=== PATIENT | female | born 1960 | race Two or more races ===

== ENCOUNTER 2017-06-17 16:08 | Emergency (ER) | payer MEDICAID ==
--- NOTE | 2017-06-17 16:42 | ER Document Report ---
ED Medical Screen (RME) - General Chief Complaint: Chest Pain Stated Complaint: CHEST PAIN Time Seen by Provider: 06/17/17 16:21 Mode of Arrival: Ambulatory Information source: Patient TRAVEL OUTSIDE OF THE [place] IN LAST 30 DAYS: No - HPI Patient complains to provider of: Chest Pain Onset: This afternoon Exacerbated by: Movement, Coughing, Deep breathing Notes: 06/17/17 16:41 Patient is a 57-year-old female who smokes, who presents to the emergency room complaining of left-sided chest pain that started approximately 1 hour prior to arrival while she was smoking, she reports a history of similar symptoms in the past is usually fleeting and does not require her to come to the hospital for evaluation, pain is worsened with deep breath or certain movements, she does feel short of breath at times as well, denies any history of coronary artery disease for herself but her father who she has never met from a heart attack - Related Data Allergies/Adverse Reactions: No Known Allergies Allergy (Verified 06/17/17 16:19) Past Medical History Pulmonary Medical History: Reports: Hx Asthma Endocrine Medical History: Denies: Hx Diabetes Mellitus Type 2 Renal/ Medical History: Reports: Hx Kidney Stones. Denies: Hx Peritoneal Dialysis Past Surgical History: Reports: Hx Tubal Ligation - Immunizations Immunizations up to date: No Hx Diphtheria, Pertussis, Tetanus Vaccination: Yes Physical Exam - Vital signs Vitals: Temp Pulse Resp BP Pulse Ox 98.0 F 63 20 101/71 95 06/17/17 16:32 06/17/17 16:32 06/17/17 16:32 06/17/17 16:32 06/17/17 16:32 Course - Vital Signs Vital signs: Temp Pulse Resp BP Pulse Ox 98.0 F 63 20 101/71 95 06/17/17 16:32 06/17/17 16:32 06/17/17 16:32 06/17/17 16:32 06/17/17 16:32
--- NOTE | 2017-06-17 17:39 | ER Document Report ---
ED Cardiac - General Mode of Arrival: Ambulatory Information source: Patient TRAVEL OUTSIDE OF THE [place] IN LAST 30 DAYS: No - HPI Patient complains to provider of: Chest pain, Shortness of breath Use of: Other - cigarettes Was the onset of pain: Sudden When did pain begin: 15:30 Chest pain location: Substernal Quality of pain: Sharp Similar symptoms previously: Yes Recently seen / treated by doctor: No <JANESSA FRANCISCO - Last Filed: 06/17/17 18:09> <ABBIE BRUNSON - Last Filed: 06/17/17 21:53> - General Chief Complaint: Chest Pain Stated Complaint: CHEST PAIN Time Seen by Provider: 06/17/17 16:21 Notes: Patient is a 57 female presenting to the emergency department for chest pain that radiates into her neck. Patient states her pain was onset around 15:30 this evening while smoking a cigarette. Patient states she has had similar pain before but states that it was not as intense and did not last long. Patient states her last episode was at the end of last year; patient states it came on suddenly and lasted for only about 3 minutes. Patient states this is the 3rd episode of pain and it has been continuous and is exacerbated with deep breaths , coughing, and certain movements. Patient states she also has some shortness of breath. Patient was brought in via EMS and received his 324 mg of aspirin and 0.4 sublingual nitroglycerin; patient states she had no relief with these medications. Patient states she takes Seroquel for sleeping and she also takes Suboxone. Patient has a history of IV drug use which is why he is on Suboxone now. Patient also has a history of tubal ligation and kidney stones. Patient states her father that she never met past away from an myocardial infarction. Patient has no known allergies. [place] [facility] [place]JANESSA FRANCISCO) - Related Data Allergies/Adverse Reactions: No Known Allergies Allergy (Verified 06/17/17 16:19) Past Medical History - General Information source: Patient - Social History Smoking Status: Current Every Day Smoker Chew tobacco use (# tins/day): No Frequency of alcohol use: None Drug Abuse: None Family History: None Patient has suicidal ideation: No Patient has homicidal ideation: No Pulmonary Medical History: Reports: Hx Asthma Renal/ Medical History: Reports: Hx Kidney Stones Past Surgical History: Reports: Hx Tubal Ligation - Immunizations Immunizations up to date: No Hx Diphtheria, Pertussis, Tetanus Vaccination: Yes <MARYAMJANESSA - Last Filed: 06/17/17 18:09> Review of Systems - Review of Systems Constitutional: No symptoms reported EENT: No symptoms reported Cardiovascular: See HPI, Chest pain Respiratory: See HPI, Short of breath Gastrointestinal: No symptoms reported Genitourinary: No symptoms reported Female Genitourinary: No symptoms reported Musculoskeletal: No symptoms reported Skin: No symptoms reported Hematologic/Lymphatic: No symptoms reported Neurological/Psychological: No symptoms reported -: Yes All other systems reviewed and negative <JANESSA FRANCISCO - Last Filed: 06/17/17 18:09> Physical Exam - Vital signs Interpretation: Normal <JANESSA FRANCISCO - Last Filed: 06/17/17 18:09> <ABBIE BRUNSON - Last Filed: 06/17/17 21:53> - Vital signs Vitals: Temp Pulse Resp BP Pulse Ox 98.0 F 63 20 101/71 95 06/17/17 16:32 06/17/17 16:32 06/17/17 16:32 06/17/17 16:32 06/17/17 16:32 - Notes Notes: GENERAL: Alert, interacts well. Mild distress. HEAD: Normocephalic, atraumatic. EYES: Appear normal. Pupils equal, round, and reactive to light. ENT: Moist mucus membranes, tongue midline. NECK: Full range of motion. Supple. Trachea midline. LUNGS: Clear to auscultation bilaterally, no wheezes, rales, or rhonchi. No respiratory distress. Left anterior chest wall is exquisitely tender to palpation. HEART: Regular rate and rhythm. No murmurs, gallops, or rubs. ABDOMEN: Soft, non-tender. Non-distended. Normal bowel sounds. EXTREMITIES: Moves all 4 extremities spontaneously. Normal strength. No edema. NEUROLOGICAL: Alert and oriented x3. Normal speech. No focal neurological deficits. GSC 15. PSYCH: Normal affect, normal mood. SKIN: Warm, dry, normal turgor. No rashes or lesions noted. (JANESSA FRANCISCO) Course - Laboratory Result Diagrams: 06/17/17 17:11 06/17/17 17:11 <JANESSA FRANCISCO - Last Filed: 06/17/17 18:09> - Laboratory Result Diagrams: 06/17/17 17:11 06/17/17 20:41 - Diagnostic Test Radiology reviewed: Image reviewed - Chest x-ray is normal - EKG Interpretation by Me EKG shows normal: Sinus rhythm, [place], Intervals, QRS Complexes. abnormal: ST-T Waves - Borderline anterior T abnormalities, T-wave inversion in V1, V2, V3 Rate: Normal Rhythm: NSR When compared to previous EKG there are: Previous EKG unavailable <ABBIE BRUNSON - Last Filed: 06/17/17 21:53> - Re-evaluation Re-evalutation: 06/17/17 21:51 The patient's troponin on a chemistry that had to be redrawn multiple times was negative. Troponin was drawn approximately 5 hours after the continuous pain had started. Went in to see the patient to review the lab work and the diagnosis with her, the room was empty there were several empty bags that have been containing food and candy. I later learned that she had been out smoking and had returned and was given the discharge paperwork, but I did not get a chance to speak with her. (ABBIE BRUNSON) - Vital Signs Vital signs: Temp Pulse Resp BP Pulse Ox 98.9 F 63 18 123/75 97 06/17/17 21:40 06/17/17 21:40 06/17/17 21:40 06/17/17 21:40 06/17/17 21:40 Discharge <JANESSA FRANCISCO - Last Filed: 06/17/17 18:09> <ABBIE BRUNSON - Last Filed: 06/17/17 21:53> - Discharge Clinical Impression: Chest wall pain Condition: Stable Disposition: HOME, SELF-CARE Additional Instructions: Chest Wall Pain: Your chest pain has been diagnosed as coming from the chest wall. This is often caused by straining the muscles or joints in the chest during physical activity, direct trauma, coughing, or vigorous vomiting. Persons with arthritis are especially prone to this type of pain, due to inflammation of the cartilage joints near the breast bone. Occasionally, no cause can be found. Rest from strenuous physical activity. This kind of chest pain is usually made worse by movement of the chest. Depending on the symptoms, we may recommend Motrin or Aleve for pain and antiinflammatory effects. If the pain is new, and seems to be due to muscle strain, cold packs can help. Otherwise, apply gentle warmth to the painful area for 15 minutes every hour or two. You should contact the doctor immediately if things change. Further evaluation is needed if you develop a fever or cough, if the nature of the pain changes, or if you become short of breath. Follow-up with your primary care provider if not improving. RETURN TO THE EMERGENCY ROOM IF ANY NEW OR WORSENING SYMPTOMS. Referrals: KATIE BUITRAGO MD [Primary Care Provider] - Follow up as needed Scribe Attestation: 06/17/17 18:31 I personally performed the services described in the documentation, reviewed and edited the documentation which was dictated to the scribe in my presence, and it accurately records my words and actions. (ABBIE BRUNSON) Scribe Documentation - Scribe Written by Scribe:: Sarah Mott, 06/17/2017 18:05 acting as scribe for :: Mimi <JANESSA FRANCISCO - Last Filed: 06/17/17 18:09>
[2017-06-17 18:11] LABS: ABSOLUTE EOSINOPHILS # (AUTO) 0.2 10^3/uL (0.0-0.6); ABSOLUTE LYMPHOCYTES (AUTO) 1.5 10^3/uL (0.5-4.7); ABSOLUTE MONOCYTES (AUTO) 0.4 10^3/uL (0.1-1.4); ABSOLUTE NEUT (AUTO) 2.7 10^3/uL (1.7-8.2); BASOPHILS % (AUTO) 0.5 % (0-2); EOSINOPHILS % (AUTO) 3.4 % (0-6); HEMATOCRIT 38.4 % (36.0-47.0); HEMOGLOBIN 13.3 g/dL (12.0-15.5); HGB HCT DIFFERENCE 1.5; LYMPHOCYTES % (AUTO) 31.4 % (13-45); MEAN CORPUSCULAR HEMOGLOBIN 31.5 pg (27.0-33.4); MEAN CORPUSCULAR HGB CONC 34.6 g/dL (32.0-36.0); MEAN CORPUSCULAR VOLUME 91 fl (80-97); MONOCYTES % (AUTO) 7.8 % (3-13); RED BLOOD COUNT 4.21 10^6/uL (3.72-5.28); RED CELL DISTRIBUTION WIDTH 13.2 % (11.5-14.0); SEGMENTED NEUTROPHILS % (AUTO) 56.9 % (42-78); WHITE BLOOD COUNT 4.7 10^3/uL (4.0-10.5)
--- NOTE | 2017-06-17 18:43 | RADIOLOGY REPORT (SQ) ---
EXAM DESCRIPTION: CHEST PA/LAT COMPLETED DATE/TIME: 06/17/2017 6:36 pm REASON FOR STUDY: cp COMPARISON: None. EXAM PARAMETERS: NUMBER OF VIEWS: two views TECHNIQUE: Digital Frontal and Lateral radiographic views of the chest acquired. RADIATION DOSE: NA LIMITATIONS: none FINDINGS: LUNGS AND PLEURA: No opacities, masses or pneumothorax. No pleural effusion. MEDIASTINUM AND HILAR STRUCTURES: No masses or contour abnormalities. HEART AND VASCULAR STRUCTURES: Heart normal size. No evidence for failure. BONES: No acute findings. HARDWARE: None in the chest. OTHER: No other significant finding. IMPRESSION: NO SIGNIFICANT RADIOGRAPHIC FINDING IN THE CHEST. TECHNICAL DOCUMENTATION: JOB ID: [id number] [employer]- All Rights Reserved
[2017-06-17 21:01] LABS: ALANINE AMINOTRANSFERASE 18 U/L (9-52); ALBUMIN 3.9 g/dL (3.5-5.0); ALKALINE PHOSPHATASE 63 U/L (38-126); ANION GAP 7 (5-19); ASPARTATE AMINO TRANSFERASE 18 U/L (14-36); BILIRUBIN,DIRECT 0.4 mg/dL (0.0-0.4); BILIRUBIN,TOTAL 0.4 mg/dL (0.2-1.3); BLOOD UREA NITROGEN 18 mg/dL (7-20); CARBON DIOXIDE 29 mmol/L (22-30); CHLORIDE 106 mmol/L (98-107); CREATINE KINASE 50 U/L (30-135); CREATININE RESULT 0.78 mg/dL (0.52-1.25); GLUCOSE 95 mg/dL (75-110); POTASSIUM 4.7 mmol/L (3.6-5.0); SODIUM 142.1 mmol/L (137-145); TOTAL PROTEIN 6.9 g/dL (6.3-8.2)
[2017-06-17 21:17] LABS: CREATINE KINASE MB < 0.22 ng/mL (<4.55); TROPONIN I < 0.012 ng/mL
[2017-06-17 21:43] VITALS: BP 123/75
--- NOTE | 2017-06-18 03:38 | EKG REPORT ---
SEVERITY:- BORDERLINE ECG - SINUS RHYTHM BORDERLINE T ABNORMALITIES, ANTERIOR LEADS : Confirmed by: Maribell Sanabria MD 18-Jun-2017 03:37:36
== END 2017-06-17 21:43 | disposition home or self-care (01) ==
LOC: ER 16:08
DX: R07.89 Other chest pain (principal); J45.909 Unspecified asthma, uncomplicated; R06.02 Shortness of breath; F17.210 Nicotine dependence, cigarettes, uncomplicated; Z79.899 Other long term (current) drug therapy; Z79.891 Long term (current) use of opiate analgesic; Z82.49 Family history of ischemic heart disease and other diseases of the circulatory system
CPT/HCPCS: 36415; 71020; 80053; 82550; 82553; 84484; 85025; 93005; 93010; 99285

== ENCOUNTER → 2017-12-17 | Outpatient (CLI) | payer MEDICAID ==
[2017-12-17 14:03] LABS: BACTERIA (WET MOUNT) 4+ BACTERIA SEEN; EPITHELIALS (WET MOUNT) 3+ EPITHELIALS SEEN; T.VAGINALIS (WET MOUNT) NO TRICHOMONAS SEEN; WBCS (WET MOUNT) 4+ WBCS SEEN; YEAST (WET MOUNT) NO YEAST SEEN
== END ==
LOC: LAB 13:59
PROVIDERS: ATTEND Nurse Practitioner Acute Care
DX: N89.8 Other specified noninflammatory disorders of vagina (principal)
CPT/HCPCS: 87210

== ENCOUNTER 2019-11-11 10:26 | Emergency (ER) | payer MEDICAID ==
[2019-11-11] MEDS ORDERED: NORMAL SALINE 1000 ML 1,000 ML IV ONE (10:52)
[2019-11-11] MEDS ORDERED: KETOROLAC TROMETHAMINE INJ/PF 30 MG/1 ML SDV IV ONE (10:52)
[2019-11-11 10:53] VITALS: BP 136/88
--- NOTE | 2019-11-11 10:53 | ER Document Report ---
ED Medical Screen (RME) - General Chief Complaint: Flank Pain Stated Complaint: FLANK PAIN Time Seen by Provider: 11/11/19 10:43 Primary Care Provider: SCAR LEPE NP [Primary Care Provider] - Follow up as needed TRAVEL OUTSIDE OF THE [place] IN LAST 30 DAYS: No - HPI Notes: 11/11/19 10:52 59-year-old female to the emergency department with complaints of left-sided flank pain that began suddenly last night while she is standing at the sink. She states that she has a history of kidney stones and is afraid that she may have another 1. She denies any nausea or vomiting. She states that she still continues to have pain. She denies any blood in her urine. She denies any dysuria or burning. She denies any frequency. States she never drinks water because she does not like the taste of it. I performed a brief medical screening exam on the patient and placed initial orders to help expedite in her care. We will have her further evaluated and managed by main side provider. - Related Data Allergies/Adverse Reactions: No Known Allergies Allergy (Verified 11/11/19 10:48) Past Medical History - Social History Frequency of alcohol use: None Drug Abuse: None Pulmonary Medical History: Reports: Hx Asthma Endocrine Medical History: Denies: Hx Diabetes Mellitus Type 2 Renal/ Medical History: Reports: Hx Kidney Stones. Denies: Hx Peritoneal Dialysis Past Surgical History: Reports: Hx Tubal Ligation - Immunizations Immunizations up to date: No Hx Diphtheria, Pertussis, Tetanus Vaccination: Yes Doctor's Discharge - Discharge Referrals: SCAR LEPE NP [Primary Care Provider] - Follow up as needed
[2019-11-11 11:24] LABS: ABSOLUTE EOSINOPHILS # (AUTO) 0.2 10^3/uL (0.0-0.6); ABSOLUTE LYMPHOCYTES (AUTO) 1.4 10^3/uL (0.5-4.7); ABSOLUTE MONOCYTES (AUTO) 0.4 10^3/uL (0.1-1.4); ABSOLUTE NEUT (AUTO) 3.2 10^3/uL (1.7-8.2); BASOPHILS % (AUTO) 0.8 % (0-2); EOSINOPHILS % (AUTO) 3.3 % (0-6); HEMATOCRIT 41.7 % (36.0-47.0); HEMOGLOBIN 13.9 g/dL (12.0-15.5); MEAN CORPUSCULAR HEMOGLOBIN 29.8 pg (27.0-33.4); MEAN CORPUSCULAR HGB CONC 33.4 g/dL (32.0-36.0); MEAN CORPUSCULAR VOLUME 89 fl (80-97); MONOCYTES % (AUTO) 7.1 % (3-13); PLATELET COUNT 293 10^3/uL (150-450); RED BLOOD COUNT 4.67 10^6/uL (3.72-5.28); RED CELL DISTRIBUTION WIDTH 13.5 % (11.5-14.0); SEGMENTED NEUTROPHILS % (AUTO) 61.8 % (42-78); TOTAL CELLS COUNTED % (AUTO) 100 %; WHITE BLOOD COUNT 5.1 10^3/uL (4.0-10.5)
[2019-11-11 11:27] LABS: APPEARANCE,URINE CLOUDY; BILIRUBIN,URINE NEGATIVE (NEGATIVE); COLOR,URINE YELLOW; GLUCOSE, URINE NEGATIVE (NEGATIVE); KETONES,URINE NEGATIVE (NEGATIVE); PROTEIN,URINE 30 mg/dL (NEGATIVE); URINE SPECIFIC GRAVITY 1.023
--- NOTE | 2019-11-11 11:46 | RADIOLOGY REPORT (SQ) ---
EXAM DESCRIPTION: CT ABD/PELVIS NO ORAL OR IV COMPLETED DATE/TIME: 11/11/2019 11:24 am REASON FOR STUDY: flank pain, eval stone COMPARISON: 08/28/2014 TECHNIQUE: CT scan of the abdomen and pelvis performed without intravenous or oral contrast. Images reviewed with lung, soft tissue, and bone windows. Reconstructed coronal and sagittal MPR images revi ewed. All images stored on PACS. All CT scanners at this facility use dose modulation, iterative reconstruction, and/or weight based d osing when appropriate to reduce radiation dose to as low as reasonably achievable (ALARA). [facility]: Dose Right [facility]: CareDose [facility]: Dose Right [facility]: Teradose 4D [facility]: Smart Bit [place] RADIATION DOSE: CT Rad equipment meets quality standard of care and radiation dose reduction techniq ues were employed. CTDIvol: 14.2 mGy. DLP: 766 mGy-cm.mGy. LIMITATIONS: None. FINDINGS: LOWER CHEST: No significant findings. No nodules or infiltrates. NON-CONTRASTED LIVER, SPLEEN, ADRENALS: Evaluation limited by lack of IV contrast. No identified sign ificant masses. PANCREAS: No masses. Fatty atrophy of the pancreas. No peripancreatic inflammatory changes. GALLBLADDER: No identified stones by CT criteria. No inflammatory changes to suggest cholecystitis. RIGHT KIDNEY AND URETER: No solid masses. Punctuate nonobstructive calculus of the superior pole of the right kidney (series 3, image 31). No hydronephrosis or hydroureter. LEFT KIDNEY AND URETER: No solid masses. No significant calcification. No hydronephrosis or hydrouret er. AORTA AND RETROPERITONEUM: No aneurysm. No retroperitoneal masses or adenopathy. BOWEL AND PERITONEAL CAVITY: No obvious masses or inflammatory changes. No free fluid. APPENDIX: Normal. PELVIS, BLADDER, AND ABDOMINAL WALL:No abnormal masses. No free fluid. Bladder normal. 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 OTHER: No other significant finding. IMPRESSION: 1. No noncontrast CT findings of the abdomen or pelvis to explain left flank pain. No evidence of left-sided urinary tract calculus or hydronephrosis. 2. Tiny nonobstructive right renal calculus. TECHNICAL DOCUMENTATION: JOB ID: [id number] Quality ID # [id number]: Final reports with documentation of one or more dose reduction techniques (e.g., Au tomated exposure control, adjustment of the mA and/or kV according to patient size, use of iterative reconstruction technique) 2010 [employer]- All Rights Reserved Reading location - IP/workstation name: [email or web address]
[2019-11-11 11:49] LABS: ALBUMIN 4.2 g/dL (3.5-5.0); ALKALINE PHOSPHATASE 54 U/L (38-126); ANION GAP 9 (5-19); ASPARTATE AMINO TRANSFERASE 20 U/L (14-36); BILIRUBIN,DIRECT 0.1 mg/dL (0.0-0.4); BILIRUBIN,TOTAL 0.6 mg/dL (0.2-1.3); BLOOD UREA NITROGEN 17 mg/dL (7-20); CALCIUM 9.5 mg/dL (8.4-10.2); CARBON DIOXIDE 27 mmol/L (22-30); CHLORIDE 105 mmol/L (98-107); GLUCOSE 135 mg/dL (75-110); POTASSIUM 4.6 mmol/L (3.6-5.0); TOTAL PROTEIN 7.1 g/dL (6.3-8.2)
--- NOTE | 2019-11-11 13:57 | ER Document Report ---
Entered by BRIDGER SANTOS SCRIBE 11/11/19 1149 Acting as scribe for:ABBIE BRUNSON MD ED General - General Chief Complaint: Flank Pain Stated Complaint: FLANK PAIN Time Seen by Provider: 11/11/19 10:43 Primary Care Provider: SCAR LEPE NP [Primary Care Provider] - Follow up as needed Mode of Arrival: Ambulatory Information source: Patient Notes: This 59 year old female patient presents to the ED today with complaints of left-sided flank pain that began late yesterday morning. Patient describes the pain as "like a ton of bricks just hit me". Patient states that she initially thought the pain was associated with kidney stones because she has a history of that, then she thought it was a muscle spasm or gas. However, patient states that when she passed gas, the pain was not relieved. Patient denies nausea or vomiting. TRAVEL OUTSIDE OF THE [place] IN LAST 30 DAYS: No - Related Data Allergies/Adverse Reactions: No Known Allergies Allergy (Verified 11/11/19 10:48) Past Medical History - General Information source: Patient - Social History Smoking Status: Unknown if Ever Smoked Cigarette use (# per day): No Chew tobacco use (# tins/day): No Smoking Education Provided: No Frequency of alcohol use: None Drug Abuse: None Family History: Reviewed & Not Pertinent Patient has suicidal ideation: No Patient has homicidal ideation: No Pulmonary Medical History: Reports: Hx Asthma Renal/ Medical History: Reports: Hx Kidney Stones Past Surgical History: Reports: Hx Tubal Ligation - Immunizations Immunizations up to date: No Hx Diphtheria, Pertussis, Tetanus Vaccination: Yes Review of Systems - Review of Systems Constitutional: No symptoms reported EENT: No symptoms reported Cardiovascular: No symptoms reported Respiratory: No symptoms reported Gastrointestinal: See HPI. denies: Nausea, Vomiting Genitourinary: See HPI, Flank pain Female Genitourinary: No symptoms reported Musculoskeletal: No symptoms reported Skin: No symptoms reported Hematologic/Lymphatic: No symptoms reported Neurological/Psychological: No symptoms reported -: Yes All other systems reviewed and negative Physical Exam - Vital signs Vitals: Temp Pulse Resp BP Pulse Ox 98.1 F 89 18 136/88 H 90 L 11/11/19 10:32 11/11/19 10:32 11/11/19 10:32 11/11/19 10:32 11/11/19 10:32 Interpretation: Normal - General General appearance: Appears well, Alert - HEENT Head: Normocephalic, Atraumatic Eyes: Normal Pupils: PERRL - Respiratory Respiratory status: No respiratory distress Chest status: Nontender Breath sounds: Normal Chest palpation: Normal - Cardiovascular Rhythm: Regular Heart sounds: Normal auscultation Murmur: No - Abdominal Inspection: Normal Distension: No distension Bowel sounds: Normal Tenderness: Nontender Organomegaly: No organomegaly - Back Back: Tender - right lower lumbar back is not tender with light palpaption. left lower lumbar back musculature tenderness with deep palpation. palpation to area lateral and inferior to the ribs causes extreme pain. patient reports pain with twisting and turning. - Extremities General upper extremity: Normal inspection General lower extremity: Normal inspection - Neurological Neuro grossly intact: Yes - Psychological Associated symptoms: Normal affect, Normal mood - Skin Skin Temperature: Warm Skin Moisture: Dry Skin Color: Normal Course - Vital Signs Vital signs: Temp Pulse Resp BP Pulse Ox 98.1 F 89 18 136/88 H 90 L 11/11/19 10:32 11/11/19 10:32 11/11/19 10:32 11/11/19 10:32 11/11/19 10:32 - Laboratory Result Diagrams: 11/11/19 11:10 11/11/19 11:10 Laboratory results interpreted by me: 11/11/19 11/11/19 11:10 11:10 Glucose 135 H Urine Protein 30 H Urine Blood SMALL H Urine Urobilinogen 4.0 H Leukocyte Esterase Rfl LARGE H Discharge - Discharge Clinical Impression: Acute flank pain, Muscle strain Condition: Stable Disposition: HOME, SELF-CARE Additional Instructions: Flank Pain: Your flank pain is most likely caused by a muscle strain or spasm. Sometimes a kidney stone causes pain, but can't be found on our tests. Infection in the kidney should be evident on a urine test. Early shingles can occasionally cause flank pain, without the rash that proves the diagnosis. On rare occasions, disease of the pancreas, aorta, spleen, or colon can create pain in the flank. At this time, there's no evidence of a dangerous condition, and it seems safe for you to be at home. If the pain goes away and does not come back, no further testing will be needed. If pain persists, or becomes more severe, we may need to repeat some tests or order additional new testing. Blood in the urine, urgency to urinate frequently, and pain that radiates to the groin can indicate a kidney stone. Fever may mean that the pain is due to infection, either of the kidney or the colon (diverticulitis). If your pain is early shingles, you should develop an eruption of blisters in the painful area within a few days. Call the doctor or return if you have pain that is spreading or becoming more severe, pain that does not resolve with time, fever, or any other new symptoms. Take the muscle relaxer as prescribed in addition to your regular medications. Try to avoid activity that makes the pain worse. Follow-up with your primary care provider if not improving. RETURN TO THE EMERGENCY ROOM IF ANY NEW OR WORSENING SYMPTOMS. Prescriptions: Cyclobenzaprine HCl [Flexeril 5 mg Tablet] 5 mg PO TID PRN #15 tablet PRN Reason: Referrals: SCAR LEPE MOLECULAR GENETICIST [Primary Care Provider] - Follow up as needed Scribe Attestation: 11/11/19 12:02 I personally performed the services described in the documentation, reviewed and edited the documentation which was dictated to the scribe in my presence, and it accurately records my words and actions. I personally performed the services described in the documentation, reviewed and edited the documentation which was dictated to the scribe in my presence, and it accurately records my words and actions.
== END 2019-11-11 12:19 | disposition home or self-care (01) ==
LOC: ER 10:26
DX: S39.012A Strain of muscle, fascia and tendon of lower back, initial encounter (principal); R10.9 Unspecified abdominal pain; X58.XXXA Exposure to other specified factors, initial encounter; Z98.51 Tubal ligation status; Z87.442 Personal history of urinary calculi
CPT/HCPCS: 99284; 96361; 96374; 36415; 85025; 80053; 81001; 74176; J1885; J7030